=== PATIENT | female | born 1960 | race Caucasian/White ===

== ENCOUNTER → 2016-11-29 | Outpatient (CLI) | payer MEDICARE ==
[2015-07-30 13:20] VITALS: BP 143/77
[~2016-11-29] MED LIST: ASPI-482 PO; ATOR10TA60 PO; CLON0.5T PO; GABA600T2 PO; IBUP-1060 PO; KRIL1CAP5 PO; LEVO50TA5 PO; META-21 PO; METH10TA2 PO; OXYC-328 PO; OXYC40TA21 PO; PROVENTIL HFA6.7 GM IH; TIOT18CA IH
--- NOTE | 2016-11-29 10:21 | KCIC ---
Targeted soft tissue ultrasound of the left abdomen HISTORY: Patient palpates a left abdominal mass. FINDINGS: Targeted ultrasound is performed at the area of the mass, as directed by the patient. No abnormal soft tissue mass or fluid collection is detected. IMPRESSION: No sonographic abnormality identified at the area of concern. Electronically signed by: Juan Mosher MD (11/29/2016 10:18 AM) [facility]
--- NOTE | 2016-11-29 11:12 | RAD ---
DATE: 11/29/2016 EXAM: MAMMO DOMITILA SCREENING BILATERAL HISTORY: Routine screening COMPARISON: 06/20/2012 FINDINGS: Breast Density: SCATTERED The breast parenchyma shows scattered fibroglandular densities. Breast parenchyma level B. There are no dominant suspicious masses, suspicious microcalcifications or evidence of architectural distortion. IMPRESSION: Negative mammogram BI-RADS CATEGORY: 1 NEGATIVE RECOMMENDED FOLLOW-UP: 12M 12 MONTH FOLLOW-UP PQRS compliance statement: Patient information was entered into a reminder system with a target due date 11/29/2017 for the next mammogram. Mammography is a sensitive method for finding small breast cancers, but it does not detect them all and is not a substitute for careful clinical examination. A negative mammogram does not negate a clinically suspicious finding and should not result in delay in biopsying a clinically suspicious abnormality. "Our facility is accredited by the [employer] Mammography [employer]."
== END | disposition home or self-care (01) ==
LOC: KCIC US 08:57
PROVIDERS: ATTEND Family Medicine
DX: Z12.31 Encounter for screening mammogram for malignant neoplasm of breast (principal); R19.04 Left lower quadrant abdominal swelling, mass and lump
CPT/HCPCS: 76705; 77063; G0202; 77067

== ENCOUNTER → 2019-01-09 | Outpatient (CLI) | payer MEDICARE ==
[2015-07-30 13:20] VITALS: BP 143/77
[~2019-01-09] MED LIST changes: -GABA600T2 PO; +GABA600T7 PO; -OXYC-328 PO; +OXYC1TAB22 PO
--- NOTE | 2019-01-09 14:57 | KCIC ---
EXAM: Dual energy x-ray absorptiometry (DEXA). HISTORY: Postmenopausal presents for osteoporosis screening. COMPARISON: None. TECHNIQUE: Dual energy x-ray absorptiometry of the lumbar spine and left hip was performed. Calculation of bone mineral density based on standard deviations above or below the expected young adult normal value (T-score) was completed. FINDINGS: The average bone mineral density in the 1st through 4th lumbar vertebrae is 0.888 g/cmxcm, corresponding with a T-score of -1.4. The average total bone mineral density in the left hip is 0.875 g/cmxcm, corresponding with a T-score of -0.5. IMPRESSION: 1. Osteopenia measured at the lumbar spine. 2. Normal bone mineral density measured at the left hip. Note: Definitions established by the World Health Organization: 1. Normal: T-score is -1.0 or above. 2. Osteopenia: T-score is between -1.0 and -2.5 . 3. Osteoporosis: T-score is -2.5 or below. Electronically signed by: Evon Borrego MD (01/09/2019 2:55 PM) [place] [id number]
--- NOTE | 2019-01-09 16:07 | KCIC ---
Bilateral digital screening mammograms: Reason for examination: Routine screening. Comparison is made to previous studies dated back to 09/19/2011. Interpretation is made with the benefit of CAD. The skin and nipples show no abnormalities. No abnormal lymph nodes are seen. The breast parenchyma is predominantly fatty. (Breast density: Category A.) There continues to be a nodular density at the 2:00 position of the left breast which is stable. There are no new dominant masses, suspicious calcifications or architectural distortions. Impression: No evidence of malignancy. Recommend routine screening. BI-RADS Category 2: Benign. "Our facility is accredited by the [employer] Mammography Program." This patient's information has been entered into a reminder system for the patient to be notified with the results of her examination and a target date for the next mammogram. Electronically signed by: Francia Bartholomew MD (01/09/2019 4:05 PM) [id number]
== END | disposition home or self-care (01) ==
LOC: KCIC MAMMO 13:25
PROVIDERS: ATTEND Family Medicine
DX: Z12.31 Encounter for screening mammogram for malignant neoplasm of breast (principal); M85.88 Other specified disorders of bone density and structure, other site; Z78.0 Asymptomatic menopausal state
CPT/HCPCS: 77067; 77080

== ENCOUNTER → 2019-01-14 | Outpatient (CLI) | payer MEDICARE ==
[2015-07-30 13:20] VITALS: BP 143/77
--- NOTE | 2019-01-14 17:54 | RESP ---
DATE OF SERVICE: 01/14/2019 REFERRING PHYSICIAN: Kelly Ballard MD The patient's FVC was 3.36, which is 97% predicted, FEV1 was 2.71, which is 100% predicted. The FEV1/FVC ratio was normal. No bronchodilators were given. Lung volume showed a total lung capacity of 129% predicted with a residual volume of 195% predicted. Diffusion capacity was normal at 97% predicted. IMPRESSION: 1. No evidence of any obstructive airway disease. 2. No bronchodilators were given. 3. Lung volumes consistent with hyperinflation. 4. Normal diffusion capacity. SANJEEV ANTHONY MD DR: PALAK/goip JOB#: [id number] / [id number] KELLY Coy MD
== END | disposition home or self-care (01) ==
LOC: PF 09:43
PROVIDERS: ATTEND Internal Medicine Cardiovascular Disease
DX: R06.00 Dyspnea, unspecified (principal)
CPT/HCPCS: 94010; 94729

== ENCOUNTER → 2019-01-15 | Outpatient (CLI) | payer MEDICARE ==
[2015-07-30 13:20] VITALS: BP 143/77
--- NOTE | 2019-01-15 08:40 | CARD ---
MR#: [id number] Date of Study: 01/15/2019 Ordering Physician: KELLY DAI, Referring Physician: KELLY DAI, Tech: Lashon Anthony APPROVED REPORT EXAM: Two-dimensional and M-mode echocardiogram with Doppler and color Doppler. Other Information Quality : AverageHR: 65bpm INDICATION Dyspnea 2D DIMENSIONS RVDd2.8 (2.9-3.5cm)Left Atrium(2D)3.1 (1.6-4.0cm) IVSd0.8 (0.7-1.1cm)Aortic Root(2D)2.3 (2.0-3.7cm) LVDd4.3 (3.9-5.9cm)LVOT Diameter1.9 (1.8-2.4cm) PWd0.7 (0.7-1.1cm)LVDs2.6 (2.5-4.0cm) FS (%) 38.9 %SV58.4 ml LVEF(%)69.6 (>50%) Aortic Valve AoV Peak Carlos.118.0cm/sAoV VTI26.1cm AO Peak GR.5.6mmHgLVOT Peak Carlos.113.9cm/s AO Mean GR.3mmHgAVA (VMAX)2.86cm2 Mitral Valve MV E Gspmmgoz50.8cm/sMV E Peak Gr.2mmHg MV DECEL [id number] A Mlslodjo62.5cm/s MV E Mean Gr.1mmHgE/A Ratio0.9 Pulmonary Valve PV Peak Mkfyttzv48.6cm/s Tricuspid Valve RAP [id number] Pulmonary Vein S1 Zggpfxmy47.3cm/sD2 Zcxawdfd35.5cm/s LEFT VENTRICLE The left ventricle is normal size. There is normal left ventricular wall thickness. The left ventricu lar systolic function is normal. The Ejection Fraction is 60-65%. There is normal LV segmental wall m otion. The left ventricular diastolic function and filling is normal for age. RIGHT VENTRICLE The right ventricle is normal size. There is normal right ventricular wall thickness. The right ventr icular systolic function is normal. ATRIA The left atrium size is normal. The right atrium size is normal. The interatrial septum is intact wit h no evidence for an atrial septal defect or patent foramen ovale as noted on 2-D or Doppler imaging. AORTIC VALVE The aortic valve is thickened but opens well. Doppler and Color Flow revealed trace aortic regurgitat ion. There is no significant aortic valvular stenosis. MITRAL VALVE The mitral valve is thickened but opens well. There is no evidence of mitral valve prolapse. There is no mitral valve stenosis. Doppler and Color-flow revealed trace mitral regurgitation. TRICUSPID VALVE The tricuspid valve is normal in structure and function. Doppler and Color Flow revealed trace tricus pid regurgitation. There is no tricuspid valve stenosis. PULMONIC VALVE The pulmonic valve is not well visualized. Doppler and Color Flow revealed no pulmonic valvular regur gitation. GREAT VESSELS The aortic root is normal in size. The ascending aorta is normal in size. The IVC is normal in size a nd collapses >50% with inspiration. PERICARDIAL EFFUSION There is no pleural effusion. There is no evidence of significant pericardial effusion. Critical Notification Critical Value: No <Conclusion> The left ventricular systolic function is normal. The Ejection Fraction is 60-65%. There is normal LV segmental wall motion. Trace aortic regurgitation. Trace mitral regurgitation. Trace tricuspid regurgitation. There is no evidence of significant pericardial effusion. Signed by : Erik Alejandro, Electronically Approved : 01/15/2019 08:39:54
--- NOTE | 2019-01-15 09:51 | RAD ---
MR#: [id number] Date of Study: 01/15/2019 Ordering Physician: KELLY BALLARD, Referring Physician: KELLY BALLARD, Tech: Lara Mccarty RVT,[facility] APPROVED REPORT Bilateral Lower Extremity Venous Study for DVT Patient Location: OUT-PATIENT Indications Lower Extremity Pain: Shortness of breath Vein Imaging (Right) CFV (R): Compressible SFJ (R): Compressible FEM (R): Compressible POP (R): Compressible DFV (R): Compressible PTV (R): Compressible GSV (R): Compressible Peroneals (R): Compressible Vein Imaging (Left) CFV (L): Compressible SFJ (L): Compressible FEM (L): Compressible POP (L): Compressible DFV (L): Compressible PTV (L): Compressible GSV (L): Compressible Peroneals (L): Compressible Findings The bilateral lower extremity deep veins were evaluated for thrombus with color Doppler, spectral and grayscale images. On the right the grayscale images of the common femoral, superficial femoral and popliteal veins do n ot demonstrate any evidence of thrombus and these veins appear to be compressible. The below-knee vei ns were not well visualized but grossly appear to be compressible. Spectral imaging and color Doppler do not reveal any evidence of obstruction to flow with normal respirophasic variation above the knee . Below the knee there is spontaneous flow noted. On the left, the grayscale images of the common femoral, superficial femoral and popliteal veins do n ot demonstrate any evidence of thrombus and these veins appear to be compressible. The below-knee vei ns again were not well visualized but grossly appear to be compressible. Spectral imaging and color D oppler do not reveal any evidence of obstruction to flow with normal respirophasic variation above th e knee. The below-knee veins demonstrate spontaneous flow. Critical Notification Critical Value: No <Conclusion> Negative for DVT. Signed by : Kelly Ballard, Electronically Approved : 01/15/2019 09:50:38
== END | disposition home or self-care (01) ==
LOC: US 07:14
PROVIDERS: ATTEND Internal Medicine Cardiovascular Disease
DX: R06.00 Dyspnea, unspecified (principal)
CPT/HCPCS: 93306; 93970

== ENCOUNTER → 2019-01-16 | Outpatient (CLI) | payer MEDICARE ==
[2015-07-30 13:20] VITALS: BP 143/77
[~2019-01-16] MED LIST changes: +REGADENOSON 0.4 MG/5 ML DISP.SYRIN. IV ONE
--- NOTE | 2019-01-16 11:11 | RAD ---
MR#: [id number] Date of Study: 01/16/2019 Ordering Physician: KELLY DAI, Referring Physician: PABLO CHE Tech: RT Abi Silva) (N) APPROVED REPORT Test Type: Pharmacological Stress Nurse/Tech: Kade CRENSHAW Test Indications: Dyspnea Cardiac History: See EMR Medications: ASA 81mg QD, PRN inhalers, See EMR Medical History: Asthma/COPD, Smoker x45 yrs, See EMR Resting ECG: SR Resting Heart Rate: 63 bpm Resting Blood Pressure: 115/64mmHg Pretest Chest Pain: No chest pain Nurse/Tech Notes Lungs with crackles in the right upper lobe and bilateral bases posteriorly, Heart tones regular. Consent: The procedure was explained to the patient in lay terms. Informed consent was witnessed. Maxime eout was entered into nGAP. History and Stress Test performed by RT Doug CamposR) (N) Pharm. Details Pharmacologic stress testing was performed using 0.4mg per 5ml of regadenoson given intravenously ove r 7-10 seconds. Stress Symptoms Nausea, disipated completely by end of test. POST EXERCISE Reason for Termination: Reached target heart rate Max HR: 106 bpm Max Blood Pressure: 133/67mmHg Blood Pressure response to exercise: Normal blood pressure response during stress. Heart Rate response to exercise: WNL Chest Pain: No. Arrhythmia: No. ST Change: No. INTERPRETATION Stress EKG Conclusion: Baseline EKG showed sinus rhythm. No ischemic changes at peak stress. No arr hythmias. Imaging Protocol IMAGE PROTOCOL: Rest Tc-99m/stress Tc-99m 1 day Rest: Stress: Viability: Radiopharm.Tc99m JqlopzizaRr88a Sestamibi Dose10.6mCi 32.5mCi Duration 13min. 13min. Img Date 01/16/2019 01/16/2019 Inj-Img Fahs18pbj. 60min. Rest Admin Site:IV - Left HandAdministrator:RT Abi Silva)(N) Stress Admin Site: IV - Left HandAdministrator: RT Abi Campos)(N) STRESS DATA End Diast. Vol.62.0mlLVEDV index BSA35.0ml End Syst. Vol.16.0mlLVESV index BSA9.0ml Myocardial Tqtb877.0gEject. Wsxhskpg54.0% Stress Scores Regional WT0.00Summed WT2.00 Regional WM0.00Summed WM5.00 Study quality was good. Left Ventricular size was Normal at Rest and Stress. Lung uptake was . Left Ventricular ejection fraction is 74%. The rest and stress images show normal perfusion, normal contraction and thickening. LV Perf. Quant 17 Seg. SSS0.00 17 Seg. SRS5.00 17 Seg. SDS0.00 Stress Defect Extent (% LAD)0.00Rest Defect Extent (% LAD)2.50Rev. Defect Extent (% LAD)0.00 Stress Defect Extent (% LCX) 0.00Rest Defect Extent (% LCX)0.00Rev. Defect Extent (% LCX)0.00 Stress Defect Extent (% RCA)0.00Rest Defect Extent (% RCA)0.00Rev. Defect Extent (% RCA)0.00 Stress Defect Extent (% NATALYA)0.00Rest Defect Extent (% NATALYA)0.90Rev. Defect Extent (% NATALYA)0.00 Conclusion 1. Regadenoson cardioisotope stress test did not show any evidence of ischemia or infarct. 2. Normal left ventricular systolic function with ejection fraction calculated at 74%. 3. Low risk for cardiac events. Signed by : Erik Alejandro, Electronically Approved : 01/16/2019 11:10:48
== END | disposition home or self-care (01) ==
LOC: NM 07:12
PROVIDERS: ATTEND Internal Medicine Cardiovascular Disease
DX: R06.00 Dyspnea, unspecified (principal); J45.909 Unspecified asthma, uncomplicated; J44.9 Chronic obstructive pulmonary disease, unspecified; F17.200 Nicotine dependence, unspecified, uncomplicated
CPT/HCPCS: 78452; 93017; A9500; J2785

== ENCOUNTER → 2019-04-21 | Outpatient (CLI) | payer MEDICARE ==
[2015-07-30 13:20] VITALS: BP 143/77
[~2019-04-21] MED LIST changes: -REGADENOSON 0.4 MG/5 ML DISP.SYRIN. IV ONE
--- NOTE | 2019-04-21 16:05 | KCIC ---
EXAM: Chest, 2 views. HISTORY: Dyspnea. COMPARISON: None. FINDINGS: 2 views of the chest are obtained. There is no infiltrate, pleural effusion or pneumothorax. The heart is normal in size. IMPRESSION: No acute pulmonary finding. Electronically signed by: Evon Borrego MD (04/21/2019 4:02 PM) [facility]
== END | disposition home or self-care (01) ==
LOC: KCIC 13:57
PROVIDERS: ATTEND Family Medicine
DX: J45.909 Unspecified asthma, uncomplicated (principal); F17.200 Nicotine dependence, unspecified, uncomplicated
CPT/HCPCS: 71046

== ENCOUNTER → 2019-04-24 | Outpatient (CLI) | payer MEDICARE ==
[2015-07-30 13:20] VITALS: BP 143/77
--- NOTE | 2019-04-24 18:20 | KCIC ---
PQRS Compliance Statement: One or more of the following individualized dose reduction techniques were utilized for this examination: 1. Automated exposure control 2. Adjustment of the mA and/or kV according to patient size 3. Use of iterative reconstruction technique CT LOW DOSE LUNG SCREENING Clinical Indication: Screening, 45 pack years tobacco use. Productive Cough, shortness of air. Comparison: None. TECHNIQUE: Helical CT imaging of the chest is performed without IV contrast using low-dose technique. Findings: Mild ectasia of the ascending thoracic aorta. There is no adenopathy in the chest, limited evaluation of the marie without IV contrast. There is mild coronary artery disease. Cardiac size normal, no pericardial effusion. There is no pleural effusion. Tiny opacity in the trachea may be retained secretions or mucous, image 96. Its position is antidependent however. Suggest attention on follow-up to exclude an endobronchial mass. Tiny nodule along the minor fissure may be an intrafissural lymph node, suggest attention on follow-up, image 139. There are very faint groundglass opacities in the bilateral lung apices. There is a 4 mm nodule in the left upper lobe that may be inflammatory, image 112. There is focal mucous plugging in the left lower lobe, for example image 211. Visualized upper abdomen is unremarkable. The vertebral body height and alignment are maintained in the thoracic spine. IMPRESSION: 1. 4 mm nodule in the left upper lobe. 2. Focal mucous plugging in the left lower lobe. 3. Tiny opacity in the trachea, suggest attention on follow-up. 4. Continue annual screening with low-dose CT in 12 months. 5. Lung RADS category 2. Electronically signed by: Kevon Wilson MD (04/24/2019 6:17 PM) [id number]
== END | disposition home or self-care (01) ==
LOC: KCIC CT 08:58
PROVIDERS: ATTEND Family Medicine
DX: Z12.2 Encounter for screening for malignant neoplasm of respiratory organs (principal); I77.810 Thoracic aortic ectasia; I25.10 Atherosclerotic heart disease of native coronary artery without angina pectoris; R91.8 Other nonspecific abnormal finding of lung field; F17.210 Nicotine dependence, cigarettes, uncomplicated
CPT/HCPCS: G0297

== ENCOUNTER → 2019-08-10 | Outpatient (CLI) | payer MEDICARE ==
[2015-07-30 13:20] VITALS: BP 143/77
--- NOTE | 2019-08-11 10:30 | SLEEP ---
DATE OF STUDY: 08/10/2019 SLEEP STUDY ATTENDING PHYSICIAN: Juan Rivas MD. REFERRING PHYSICIAN: Osman Hinds MD. The patient is a 59-year-old who weighs 151 pounds with a BMI of 25. The patient's Calion score was 10. The patient underwent split night study performed at [facility]. During the night study, the patient spent 423 minutes in bed and slept for 334 minutes with a sleep efficiency of 79%. Sleep latency was 10 minutes with a REM latency of 128 minutes. Sleep architecture showed normal stage 1 sleep, slightly increased stage 2 sleep, normal slow wave and normal REM sleep. During the initial diagnostic portion of the study, the patient slept for 147 minutes. During that time, the patient had 3 obstructive apneas, no mixed or central apneas and 53 hypopneas. The patient's AHI was 23 per hour with a supine AHI of 62 per hour and a REM AHI of 102 per hour. EKG monitoring revealed an average heart rate of 79 beats per minute, no sustained arrhythmias observed. Nocturnal oximetry study revealed a mean oxygen saturation 94% with the lowest of 79%, 10% of time oxygen saturation remained between 80% and 89%. PLMS were seen at index of 64 per hour and 9 per hour caused EEG arousals. The patient was started on CPAP at 5 cm water and continued at the same pressure. The patient slept for 187 minutes. The patient had supine and limited REM sleep. The patient's AHI was reduced to 0 per hour and oxygen saturation remained above 90%. IMPRESSION: 1. Moderate obstructive sleep apnea with worsening during supine and REM sleep. Total AHI 23 per hour with a supine AHI of 62 per hour and a REM AHI of 102 per hour. 2. Nocturnal hypoxia secondary to obstructive sleep apnea, but resolved with CPAP. 3. Severe periodic limb movements. RECOMMENDATIONS: 1. CPAP at 5 cm water completely eliminated the patient's sleep apnea and should be used on a nightly basis. 2. Follow up in 4-6 weeks to assess compliance with CPAP and to document clinical improvement. 3. Avoid [employer] depressants. 4. Cautioned regarding driving until symptoms of sleep apnea resolve with the use of CPAP. 5. The patient should also be further evaluated for symptoms of restless legs during the day. 6. The patient used medium-sized nasal pillows. SANJEEV ANTOHNY MD DR: Shoaib JOB#: [id number] / [id number]
== END | disposition home or self-care (01) ==
LOC: SLPLAB 19:08
PROVIDERS: ATTEND Internal Medicine Pulmonary Disease
DX: G47.33 Obstructive sleep apnea (adult) (pediatric) (principal); G47.34 Idiopathic sleep related nonobstructive alveolar hypoventilation; G47.61 Periodic limb movement disorder
CPT/HCPCS: 95810